=== PATIENT | female | born 1990 | race Caucasian/White ===

== ENCOUNTER 2022-05-13 16:52 | Inpatient (IN) ==
[2022-05-13] MEDS ORDERED: OXYTOCIN 30 UNITS/500 ML BAG IV PRN ×2 (17:50→19:29)
[2022-05-13] MEDS ORDERED: LIDOCAINE 1% LOCAL 20 ML VIAL INFIL PRN (17:50)
[2022-05-13] MEDS ORDERED: SODIUM CHLORIDE 0.9% PF INJ 10 ML VIAL ONE (17:51)
[2022-05-13] MEDS ORDERED: LIDOCAINE 2%/EPINEPHRINE 1:200,000 20 ML PF ONE (17:51)
[2022-05-13] MEDS ORDERED: fentaNYL 2MCG/ML ROPIVACAINE 1.25MG/ML 100 ML BAG EPI ONE (17:51)
[2022-05-13] MEDS ORDERED: BUPIVACAINE 0.25% PF 30 ML VIAL ONE (17:51)
[2022-05-13] MEDS ORDERED: ePHEDrine sulfate 50 MG/ML AMP ONE (17:51)
[2022-05-13] MEDS ORDERED: fentaNYL citrate PF 100 MCG/2 ML VIAL ONE (17:51)
[2022-05-13] MEDS: LACTATED RINGER'S 1,000 ML IV PRN ×2 (17:58→20:30)
[2022-05-13 18:27] LABS: Hematocrit (blood only) 32.6 % (37.0-47.0); Hemoglobin 11.3 g/dl (12.0-16.0); Mean Corpuscular Hemoglobin 31.3 pg (25.0-34.0); Mean Corpuscular Hgb Conc 34.7 g/dL (32.0-36.0); Mean Corpuscular Volume 90.3 fL (80.0-100.0); Mean Platelet Volume 9.7 fL (9.4-12.4); Platelet Count 176 K/uL (130-400); RDW Coefficient of Variation 12.6 % (11.5-14.5); RDW Standard Deviation 41.4 fL (36.4-46.3); Red Blood Count 3.61 M/uL (4.20-5.40); White Blood Count 8.24 K/ul (4.8-10.8)
--- NOTE | 2022-05-13 19:28 | Obstetrical Progress Note ---
Date of Service May 13, 2022 Assessment & Plan (1) : Plan: at 36+ weeks PPROM at 13;00-clear Hx of seizures on meds bedside sono: VT VE; /-3 ctx 1-2mins anticipate VD Admission and Anticipated Discharge Date Admission Date: May 13, 2022 Results & Data ([facility]) Vital Signs (Past 12 Hours) Vital Signs Temp Pulse Resp BP 05/13/22 17:02 36.6 C 20 05/13/22 19:19 65 05/13/22 19:19 108/63 05/13/22 17:01 87 116/61
[2022-05-13] MEDS ORDERED: fentaNYL 2MCG/ML ROPIVACAINE 1.25MG/ML 100 ML BAG EPI PRN (20:07)
[2022-05-13] MEDS ORDERED: diphenhydrAMINE 50 MG/ML VIAL IV PRN (20:07)
[2022-05-13] MEDS ORDERED: NALBUPHINE HCL INJ 10 MG/ML AMP IV PRN (20:07)
[2022-05-13] MEDS ORDERED: NALOXONE HCL 1 MG in SODIUM CHLORIDE 0.9% 1000ML 1,000 ML IV PRN (20:07)
[2022-05-13] MEDS ORDERED: ePHEDrine sulfate 50 MG/ML AMP IV PRN (20:07)
[2022-05-13] MEDS ORDERED: NALOXONE HCL 0.4 MG/1 ML VIAL/CARP IV PRN (20:07)
[2022-05-13] MEDS ORDERED: ONDANSETRON INJ 2 MG/ML 2 ML VIAL IV PRN (20:07)
--- NOTE | 2022-05-13 20:10 | Anesthesiology Consultation ---
Date of Service May 13, 2022 Assessment & Plan (1) Encounter for pre-operative examination: Chart Review Chart Review: Patient NOT seen in Pre Admission Testing and Acceptable Risk for Labor Epidural Consults Requested none History Height/Weight Height: 5 ft 6.5 in Weight: 71.668 kg Allergies Allergy/AdvReac Type Severity Reaction Status Date / Time No Known Allergies Allergy Unverified 05/13/22 17:49 Medications Home Medications Medication Instructions Recorded Confirmed Last Taken ferrous sulfate 325 mg (65 mg 325 mg PO DAILY 05/13/22 05/13/22 Unknown iron) tablet (iron) lamotrigine 150 mg tablet See Rx Instructions .Route .COMPLEX 05/13/22 05/13/22 05/13/22 08:00 (Lamictal) levetiracetam 750 mg tablet 750 mg PO BID 05/13/22 05/13/22 05/13/22 08:00 (Keppra) prenat.vits,kim,ryb-exve-ymttp 1 tab PO DAILY 05/13/22 05/13/22 Unknown Active Medications Generic Name Dose Route Start Last Admin Trade Name Freq PRN Reason Stop Dose Admin Lactated Ringer's 1,000 mls @ 125 mls/hr 05/13/22 17:50 05/13/22 20:30 Lr IV 05/15/22 17:49 125 mls/hr .Q8H PRN Administration L&D Protocol Protocol Past Medical History Medical History (Updated 05/13/22 @ 20:10 by Nehemias Forbes MD) Encounter for pre-operative examination Epilepsy Exercise / Class Metabolic Activity II 4-5 Yardwork/Stairs/Walk up hill Social History Smoking Status: Never smoker Hx Alcohol Use: No Hx Substance Use: No Physical Exam Vital Signs Last Vital Signs Temp 36.7 C 05/13/22 19:17 Pulse 71 05/13/22 20:34 Resp 18 05/13/22 19:17 BP 106/59 L 05/13/22 20:34 Pulse Ox 100 05/13/22 20:34 Testing Laboratory Results 05/13/22 18:05
[2022-05-13] MEDS: lamoTRIgine 100 MG TAB PO SCH (20:46)
[2022-05-13] MEDS: levETIRAcetam 250 MG TAB PO SCH (20:51)
[2022-05-13] MEDS ORDERED: levETIRAcetam 250 MG TAB PO SCH (21:00)
[2022-05-14] MEDS: LACTATED RINGER'S 1,000 ML IV PRN (04:08)
[2022-05-14] MEDS ORDERED: bisacodyL 10 MG SUPP PR PRN (05:44)
[2022-05-14] MEDS ORDERED: BENZOCAINE 20% AER SPR 82.5 GM CAN EXT PRN (05:44)
[2022-05-14] MEDS ORDERED: HYDROCORTISONE ACETATE 25 MG SUPP PR PRN (05:44)
[2022-05-14] MEDS ORDERED: DIPHTHERIA/TETANUS/PERTUSSIS 0.5mL SYR/VIAL (Age 7+yrs) IM ONE (05:44)
[2022-05-14] MEDS ORDERED: METHYLERGONOVINE MALEATE 0.2 MG/ML AMP IM ONE (05:44)
[2022-05-14] MEDS ORDERED: OXYTOCIN 30 UNITS/500 ML BAG IV PRN (05:44)
[2022-05-14] MEDS ORDERED: ACETAMINOPHEN 325 MG TAB PO PRN (05:44)
[2022-05-14] MEDS ORDERED: miSOPROStoL 200 MCG TAB PR ONE (05:44)
[2022-05-14 05:56] LABS: Base Excess Cord Venous Blood -1.5 mEq/L (-7.7-1.9); Cord Venous Blood HCO3 24 mmol/L (18.4-26.8); Cord Venous Blood PCO2 44 mmHg (30.4-57.2); Cord Venous Blood PO2 31 mmHg (14.1-43.3); Cord Venous Blood pH 7.35 (7.20-7.44); O2 Saturation Cord Venous Bld 72.9 % (<68)
[2022-05-14 05:57] LABS: Base Excess Cord Arterial Bld 0.5 mEq/L (-9-1.8); CO2 Cord Arterial Blood 63 mmHg (39.1-73.5); HCO3 Cord Arterial Blood 29 mmol/L (19.7-28.5); Oxygen Sat Cord Arterial Blood < 60.0 % (<60); PO2 Cord Arterial Blood 14 mmHg (4.1-31.7); pH Cord Arterial Blood 7.27 (7.1-7.38)
[2022-05-14] MEDS: IBUPROFEN 600 MG TAB PO PRN ×3 (08:32→20:27)
[2022-05-14] MEDS: PRENATAL VITAMIN 1 TAB PO SCH (08:32)
[2022-05-14] MEDS: DOCUSATE SODIUM 100 MG CAP PO SCH ×2 (08:32→20:27)
[2022-05-14] MEDS: levETIRAcetam 250 MG TAB PO SCH ×2 (08:33→20:28)
[2022-05-14] MEDS: lamoTRIgine 100 MG TAB PO SCH ×2 (08:34→20:29)
--- NOTE | 2022-05-14 09:12 | Anesthesia Procedure Note ---
Date of Service May 14, 2022 Anesthesia Post Epidural Note Vital Signs Vital Signs: Temp Pulse Resp BP Pulse Ox 36.7 C 70 18 109/57 L 100 05/14/22 05:55 05/14/22 08:31 05/14/22 06:40 05/14/22 08:31 05/14/22 05:09 Notes Mental Status: alert / awake / arousable Nausea / Vomiting: adequately controlled Pain: adequately controlled Airway Patency, RR, SpO2: stable & adequate BP & HR: stable & adequate Hydration State: stable & adequate Neuraxial Anesthesia: was administered and sensory block is resolving Anesthetic Complications: no major complications apparent Epidural: Removed without complications and With tip intact
--- NOTE | 2022-05-14 11:35 | Delivery Summary ---
DELIVERY NOTE: The patient delivered a live infant male in occiput anterior presentation. There wer e 2 nuchal cords, which were clamped and cut. was delivered and placed on mother's abdomen. Infant's Apgars 9, 10. Cord blood was obtained. Placenta was spontaneously delivered. Inspection o f the perineum shows a midline laceration, which was repaired with 2-0 Vicryl in layers. ESTIMATED BLOOD LOSS: 450 mL. Rectal exam post-repair shows good sphincter tone. No sutures were palpated in the rectum. All instruments were removed from the vagina and accounted for x2 including sponges, needles, and ret ractors. The patient is sent to recovery in stable condition. Job ID: [id number]
[2022-05-15] MEDS: IBUPROFEN 600 MG TAB PO PRN ×4 (03:27→20:16)
[2022-05-15 06:48] LABS: Hematocrit (blood only) 26.9 % (37.0-47.0); Hemoglobin 9.3 g/dl (12.0-16.0); Mean Corpuscular Hemoglobin 30.9 pg (25.0-34.0); Mean Corpuscular Hgb Conc 34.6 g/dL (32.0-36.0); Mean Corpuscular Volume 89.4 fL (80.0-100.0); Mean Platelet Volume 9.7 fL (9.4-12.4); Platelet Count 151 K/uL (130-400); RDW Coefficient of Variation 12.9 % (11.5-14.5); Red Blood Count 3.01 M/uL (4.20-5.40); White Blood Count 11.12 K/ul (4.8-10.8)
[2022-05-15] MEDS: DOCUSATE SODIUM 100 MG CAP PO SCH ×2 (07:34→20:16)
[2022-05-15] MEDS: PRENATAL VITAMIN 1 TAB PO SCH (07:34)
[2022-05-15] MEDS: lamoTRIgine 100 MG TAB PO SCH ×2 (07:38→20:16)
[2022-05-15] MEDS: levETIRAcetam 250 MG TAB PO SCH ×2 (07:40→20:16)
--- NOTE | 2022-05-15 09:47 | Obstetrical Progress Note ---
Date of Service May 15, 2022 Assessment & Plan (1) Normal course: PPD #1 pt doing well Infant needs to be observed 1 longer by Peds continue day #1 care Results & Data ([facility]) Vital Signs (Past 12 Hours) Vital Signs Temp Pulse Resp BP Pulse Ox O2 Del Method 05/15/22 07:45 36.5 C 66 18 92/57 L Room Air 05/15/22 04:00 36.5 C 75 14 98/61 L 97 Room Air 05/14/22 23:30 36.8 C 82 16 98/59 L 99 Room Air
[2022-05-15] MEDS ORDERED: oxyCODONE/ACETAMINOPHEN 5mg/325mg TAB PO PRN (09:51)
[2022-05-15] MEDS ORDERED: bisacodyL 5 MG TABEC PO SCH (20:00)
[2022-05-16] MEDS: IBUPROFEN 600 MG TAB PO PRN (04:58)
[2022-05-16 06:28] LABS: Hematocrit (blood only) 27.1 % (37.0-47.0); Hemoglobin 9.2 g/dl (12.0-16.0)
[2022-05-16] MEDS: PRENATAL VITAMIN 1 TAB PO SCH (07:48)
[2022-05-16] MEDS: DOCUSATE SODIUM 100 MG CAP PO SCH (07:48)
[2022-05-16] MEDS: levETIRAcetam 250 MG TAB PO SCH (07:48)
[2022-05-16] MEDS: lamoTRIgine 100 MG TAB PO SCH (07:49)
--- NOTE | 2022-05-18 13:14 | Coding Query ---
CODING QUERY To promote full compliance with coding requirements relating to patient care, provider participation is requested in all cases of tag writer uncertainty. Please assist us with the question(s) below: Coding Question(s): Documentation states "perineum shows a midline laceration, which was repaired with 2-0 Vicryl in layers" please specify degree of perineum laceration Physician's Response(s): second degree Thank you Siobhan Dawn Response; second degree laceration Principal Diagnosis: "that condition established after study, to be chiefly responsible for occasioning the admission of the patient to the hospital for care." Co-Existing Principal Diagnosis: "when two or more diagnoses equally meet the criteria for principal diagnosis as determined by the circumstances of admission, diagnostic work up, and/or therapy provided, and the Alphabetic Index, Tabular List, or another coding guideline does not provide sequencing direction, any one of the diagnoses may be sequenced first." "When the physician has documented what appears to be a current diagnosis in the body of the record, but has not included the diagnosis in the final diagnostic statement, the physician should be asked whether the diagnosis should be added." (Source [facility]oding [facility] 2 QTR90. p3-4) [place]
== END 2022-05-16 11:55 | disposition home or self-care (01) | DRG 806 ==
LOC: OPB 16:52 → 4S1 16:56 → 4E2 05-14 10:53